=== PATIENT | male | born 1965 | race Caucasian/White ===

== ENCOUNTER 2018-01-22 09:58 | Day surgery (SDC) | payer OTHER ==
[2018-01-21 11:47] LABS: BILIRUBIN,URINE NEGATIVE (NEGATIVE); BLOOD, URINE NEGATIVE (NEGATIVE); CLARITY/URINE CLEAR (CLEAR); COLOR,URINE YELLOW (YELLOW); GLUCOSE,URINE NEGATIVE (NEGATIVE); KETONES,URINE NEGATIVE (NEGATIVE); LEUKOCYTE ESTERASE ,URINE NEGATIVE (NEGATIVE); NITRITE, URINE NEGATIVE (NEGATIVE); PH,URINE 5.5 (5.0-8.0); PROTEIN URINE NEGATIVE (NEGATIVE); UROBILINOGEN,URINE 0.2 (0.2-1.0)
[2018-01-21 11:49] LABS: BASOPHILS # (AUTO) 0.1 K/uL (0.0-0.2); BASOPHILS % (AUTO) 0.8 % (0.0-2.0); EOSINOPHILS # (AUTO) 0.2 K/uL (0.0-0.4); EOSINOPHILS % (AUTO) 2.7 % (0.0-4.0); HEMATOCRIT 42.9 % (36-54); HEMOGLOBIN 13.9 g/dL (14.0-18.0); LYMPHOCYTES # (AUTO) 1.6 K/uL (1.0-5.5); LYMPHOCYTES % (AUTO) 24.7 % (20.5-51.5); MEAN CORPUSCULAR HEMOGLOBIN 29 pg (27-31); MEAN CORPUSCULAR HGB CONC 33 % (32-36); MEAN CORPUSCULAR VOLUME 88 fL (79.0-98.0); MONOCYTES # (AUTO) 0.5 K/uL (0.0-1.0); MONOCYTES % (AUTO) 7.2 % (1.7-9.3); NEUTROPHILS # (AUTO) 4.1 K/uL (1.8-7.7); NEUTROPHILS % (AUTO) 64.6 % (40.0-70.0); PLATELET COUNT (AUTO) 228 K/uL (130-430); RED BLOOD CELL COUNT(AUTO) 4.87 MIL/uL (4.2-6.2); RED CELL DISTRIBUTION WIDTH 12.8 % (9.0-15.0); WHITE BLOOD COUNT (AUTO) 6.5 K/uL (4.8-10.8)
[2018-01-21 12:00] LABS: CALCIUM 9.6 mg/dL (8.4-11.0); CREATININE 0.95 mg/dL (0.55-1.30)
[2018-01-21 12:08] LABS: INR 1.1 (0.80-1.20)
[~2018-01-22] VITALS: Ht 170.2 cm; Wt 86.2 kg
[2018-01-22] MEDS ORDERED: NS IRRIG SOLN 1000 ML IR ONE (12:15)
[2018-01-22] MEDS ORDERED: MIDAZOLAM HCL 5 MG/5 ML VIAL IVP ONE (12:15)
[2018-01-22] MEDS ORDERED: NEOSTIGMINE METHYLSULFATE 1 MG/ML, 10 ML VIAL IVP ONE (12:15)
[2018-01-22] MEDS ORDERED: ONDANSETRON HCL 4 MG/2 ML VIAL IVP ONE (12:15)
[2018-01-22] MEDS ORDERED: METOPROLOL TARTRATE 5 MG/5 ML VIAL IVP ONE (12:15)
[2018-01-22] MEDS ORDERED: fentaNYL CITRATE 250 MCG/5 ML AMP IV ONE (12:15)
[2018-01-22] MEDS ORDERED: BUPIVACAINE /PF 0.5% 30 ML VIAL INJ ONE (12:15)
[2018-01-22] MEDS ORDERED: GLYCOPYRROLATE 0.2 MG/ML VIAL IJ ONE (12:15)
[2018-01-22] MEDS ORDERED: LR 1,000 ML IV.SOLN IV ONE (12:15)
[2018-01-22] MEDS ORDERED: ROCURONIUM BROMIDE 10 MG/ML (ZEMURON) IV ONE (12:15)
[2018-01-22] MEDS ORDERED: SEVOFLURANE 15 MIN GAS INH ONE (12:15)
[2018-01-22] MEDS ORDERED: POLYMYXIN 500,000/BACIT.10,000 UNITS in NS IRR 1 L IR ONE (12:50)
[2018-01-22] MEDS ORDERED: LR 1,000 ML IV SCH (14:16)
[2018-01-22] MEDS ORDERED: MORPHINE 4 MG/ML INJ. SYRINGE IVP PRN ×3 (14:30)
[2018-01-22] MEDS ORDERED: METOCLOPRAMIDE HCL 10 MG/2 ML VIAL IVP PRN (14:30)
[2018-01-22] MEDS ORDERED: MORPHINE 4 MG/ML INJ. SYRINGE ONE (15:30)
[2018-01-22] MEDS ORDERED: HYDROmorphone 1 MG INJ. 1 MG/ML AMPUL IVP ONE (16:15)
[2018-01-22] MEDS: HYDROmorphone 1 MG INJ. 1 MG/ML AMPUL ONE ×2 (16:17→17:12)
[2018-01-22] MEDS: DILTIAZEM HCL 25 MG/5 ML VIAL IVP ONE ×2 (16:30→17:12)
[2018-01-22] MEDS: ROPIVACAINE 0.2% 100 ML INJ SCH (16:34)
[2018-01-22] MEDS ORDERED: HYDROcodone/ACETAMIN 10-325 MG TAB PO PRN (16:45)
[2018-01-22 17:04] VITALS: BP_SYST 163
[2018-01-22] MEDS: MORPHINE SULFATE 10 MG/ML VIAL IM PRN ×2 (17:27→22:37)
[2018-01-22 19:00] VITALS: BP_SYST 140
[2018-01-22 20:00] VITALS: BP_SYST 140
[2018-01-22] MEDS ORDERED: ceFAZolin SODIUM 1 GM in D5W 50 ML IV SCH (20:00)
[2018-01-22] MEDS: HYDROcodone/ACETAMIN 10-325 MG TAB PO PRN (20:09)
[2018-01-22] MEDS ORDERED: ceFAZolin SODIUM 1 GM VIAL ONE (22:52)
[2018-01-22] MEDS: ceFAZolin SODIUM 1 GM in D5W 50 ML IV SCH (22:59)
[2018-01-23] MEDS ORDERED: CEFAZOLIN 1 GM IVPB PREMIX 50 ML IV ONE ×2 (02:10→11:45)
[2018-01-23] MEDS: MORPHINE SULFATE 10 MG/ML VIAL IM PRN ×2 (02:51→08:09)
[2018-01-23] MEDS: ROPIVACAINE 0.2% 100 ML INJ SCH (05:04)
[2018-01-23] MEDS: ceFAZolin SODIUM 1 GM in D5W 50 ML IV SCH (05:49)
[2018-01-23] MEDS: HYDROcodone/ACETAMIN 10-325 MG TAB PO PRN (06:56)
[2018-01-23 07:30] VITALS: BP_SYST 120
[2018-01-23] MEDS ORDERED: CEPH-568 PO (11:53)
[2018-01-23] MEDS ORDERED: HYDR-2489 PO (11:53)
[2018-01-23] MEDS ORDERED: HYDR25TA4 PO (11:54)
[2018-01-23] MEDS ORDERED: LISI10TA5 PO (11:54)
[2018-01-23 12:08] VITALS: BP_SYST 134
[2018-01-23 12:22] VITALS: BP_SYST 134
[2018-01-23 16:00] VITALS: BP_SYST 145
== END 2018-01-23 13:27 | disposition home or self-care (01) ==
LOC: SMU 09:58 → SDS 09:58 → SMU 16:55 → SDS 01-23 13:27
PROVIDERS: ATTEND Orthopaedic Surgery
DX: Z47.2 Encounter for removal of internal fixation device (principal); S82.392A Other fracture of lower end of left tibia, initial encounter for closed fracture; X58.XXXA Exposure to other specified factors, initial encounter; Y93.9 Activity, unspecified; Y92.89 Other specified places as the place of occurrence of the external cause; Y99.9 Unspecified external cause status; Z98.890 Other specified postprocedural states; I10 Essential (primary) hypertension
CPT/HCPCS: 20680; 27827; 36415; 71046; 76001; 80048; 81003; 85025; 85610; 85730; 87081; 93005; 97162; J0690 ×2; J1170; J2250; J2270 ×3; J2405; J2710; J3010; J3490 ×3; J7060; J7120; C1713; J2795

== ENCOUNTER 2018-02-16 09:44 | Inpatient (IN) | payer OTHER ==
[~2018-02-16] VITALS: Ht 170.2 cm; Wt 83.9 kg
[~2018-02-16 09:44] MED LIST: CEPH-568 PO; HYDR-2489 PO; HYDR25TA4 PO; LISI10TA5 PO
[2018-02-16 09:49] VITALS: BP_SYST 159
[2018-02-16] MEDS ORDERED: ceFAZolin SODIUM 1 GM in D5W 50 ML IV ONE (10:45)
[2018-02-16] MEDS ORDERED: fentaNYL CITRATE/PF 100 MCG/2 ML AMP IVP ONE (10:45)
[2018-02-16] MEDS ORDERED: LISI1TAB9 PO (11:08)
[2018-02-16] MEDS ORDERED: NACL 0.9% 1,000 ML IV SCH (11:15)
[2018-02-16 11:19] LABS: BASOPHILS # (AUTO) 0.1 K/uL (0.0-0.2); BASOPHILS % (AUTO) 0.8 % (0.0-2.0); EOSINOPHILS # (AUTO) 0.1 K/uL (0.0-0.4); EOSINOPHILS % (AUTO) 1.5 % (0.0-4.0); HEMATOCRIT 44.7 % (36-54); HEMOGLOBIN 14.8 g/dL (14.0-18.0); LYMPHOCYTES # (AUTO) 1.5 K/uL (1.0-5.5); LYMPHOCYTES % (AUTO) 16.2 % (20.5-51.5); MEAN CORPUSCULAR HEMOGLOBIN 29 pg (27-31); MEAN CORPUSCULAR HGB CONC 33 % (32-36); MEAN CORPUSCULAR VOLUME 87 fL (79.0-98.0); MONOCYTES # (AUTO) 0.8 K/uL (0.0-1.0); NEUTROPHILS # (AUTO) 6.8 K/uL (1.8-7.7); NEUTROPHILS % (AUTO) 72.5 % (40.0-70.0); PLATELET COUNT (AUTO) 337 K/uL (130-430); RED BLOOD CELL COUNT(AUTO) 5.17 MIL/uL (4.2-6.2); RED CELL DISTRIBUTION WIDTH 12.8 % (9.0-15.0); WHITE BLOOD COUNT (AUTO) 9.3 K/uL (4.8-10.8)
[2018-02-16 11:31] LABS: INR 1.2 (0.80-1.20)
[2018-02-16] MEDS ORDERED: ceFAZolin SODIUM 1 GM VIAL ONE (11:31)
[2018-02-16 11:32] LABS: ALBUMIN 3.8 g/dL (3.4-4.8); CALCIUM 9.7 mg/dL (8.4-11.0); CREATININE 1.08 mg/dL (0.55-1.30); POTASSIUM 3.6 mmol/L (3.5-5.1); TOTAL BILIRUBIN 0.3 mg/dL (0.0-1.0)
[2018-02-16] MEDS ORDERED: ceFAZolin SODIUM 1 GM in D5W 50 ML IV SCH (12:00)
[2018-02-16 12:02] VITALS: BP_SYST 151
[2018-02-16] MEDS: HYDROcodone/ACETAMIN 10-325 MG TAB PO PRN ×3 (12:21→20:33)
[2018-02-16 12:23] VITALS: BP_SYST 148
[2018-02-16 16:00] VITALS: BP_SYST 138
[2018-02-16] MEDS: cefTRIAXone 2 GM in D5W 50 ML IV SCH (18:08)
[2018-02-16] MEDS: VANCOMYCIN HCL 1.25 GM/NS 250 ML IV SCH (18:57)
[2018-02-16 20:00] VITALS: BP_SYST 139
[2018-02-16 23:47] VITALS: BP_SYST 124
[2018-02-17] MEDS: HYDROcodone/ACETAMIN 10-325 MG TAB PO PRN ×5 (04:05→20:44)
[2018-02-17] MEDS: VANCOMYCIN HCL 1.25 GM/NS 250 ML IV SCH ×2 (06:03→20:03)
[2018-02-17 07:12] LABS: ALBUMIN 3.5 g/dL (3.4-4.8); CALCIUM 9.4 mg/dL (8.4-11.0); CREATININE 0.92 mg/dL (0.55-1.30); POTASSIUM 3.9 mmol/L (3.5-5.1); TOTAL BILIRUBIN 0.3 mg/dL (0.0-1.0)
[2018-02-17 08:21] VITALS: BP_SYST 135
[2018-02-17] MEDS: LISINOPRIL 10 MG TABLET (PRINIVIL) PO SCH (09:12)
[2018-02-17] MEDS: HYDROCHLOROTHIAZIDE 12.5 MG CAPSULE (HCTZ) PO SCH (09:13)
[2018-02-17 12:07] VITALS: BP_SYST 151
[2018-02-17 16:00] VITALS: BP_SYST 131
[2018-02-17] MEDS: cefTRIAXone 2 GM in D5W 50 ML IV SCH (17:27)
[2018-02-17 19:05] VITALS: BP_SYST 132
[2018-02-18] MEDS: HYDROcodone/ACETAMIN 10-325 MG TAB PO PRN ×4 (05:35→22:38)
[2018-02-18] MEDS: VANCOMYCIN HCL 1.25 GM/NS 250 ML IV SCH ×2 (06:30→18:38)
[2018-02-18 08:00] VITALS: BP_SYST 124
[2018-02-18] MEDS: LISINOPRIL 10 MG TABLET (PRINIVIL) PO SCH (09:01)
[2018-02-18] MEDS: HYDROCHLOROTHIAZIDE 12.5 MG CAPSULE (HCTZ) PO SCH (09:02)
[2018-02-18] MEDS: cefTRIAXone 2 GM in D5W 50 ML IV SCH (17:19)
[2018-02-18 20:00] VITALS: BP_SYST 143
[2018-02-18 23:30] VITALS: BP_SYST 127
[2018-02-19] MEDS: HYDROcodone/ACETAMIN 10-325 MG TAB PO PRN ×5 (04:08→23:11)
[2018-02-19] MEDS: VANCOMYCIN HCL 1.25 GM/NS 250 ML IV SCH ×2 (06:29→20:25)
[2018-02-19 08:00] VITALS: BP_SYST 143
[2018-02-19] MEDS: HYDROCHLOROTHIAZIDE 12.5 MG CAPSULE (HCTZ) PO SCH (08:33)
[2018-02-19] MEDS: LISINOPRIL 10 MG TABLET (PRINIVIL) PO SCH (08:34)
[2018-02-19 12:00] VITALS: BP_SYST 123
[2018-02-19 15:06] LABS: INR 1.1 (0.80-1.20); PROTHROMBIN TIME 11.4 SECS (9.5-12.5)
[2018-02-19 16:35] VITALS: BP_SYST 142
[2018-02-19 20:00] VITALS: BP_SYST 119
[2018-02-19 23:00] VITALS: BP_SYST 127
[2018-02-20] MEDS: VANCOMYCIN HCL 1.25 GM/NS 250 ML IV SCH (06:00)
[2018-02-20] MEDS: HYDROcodone/ACETAMIN 10-325 MG TAB PO PRN ×5 (06:03→22:46)
[2018-02-20 06:35] LABS: CREATININE 0.84 mg/dL (0.55-1.30); POTASSIUM 3.8 mmol/L (3.5-5.1)
[2018-02-20 08:00] VITALS: BP_SYST 132
[2018-02-20 08:19] LABS: CALCIUM 9.2 mg/dL (8.4-10.2)
[2018-02-20] MEDS: HYDROCHLOROTHIAZIDE 12.5 MG CAPSULE (HCTZ) PO SCH (09:46)
[2018-02-20] MEDS: LISINOPRIL 10 MG TABLET (PRINIVIL) PO SCH (09:47)
[2018-02-20 11:17] VITALS: BP_SYST 141
[2018-02-20 15:26] VITALS: BP_SYST 119
[2018-02-20] MEDS: VANCOMYCIN HCL 1,500 MG in NS 250 ML IV SCH (18:03)
[2018-02-20 20:00] VITALS: BP_SYST 129
[2018-02-20 23:15] VITALS: BP_SYST 120
[2018-02-21] MEDS: VANCOMYCIN HCL 1,500 MG in NS 250 ML IV SCH ×2 (06:02→18:10)
[2018-02-21] MEDS: HYDROcodone/ACETAMIN 10-325 MG TAB PO PRN ×4 (06:04→20:28)
[2018-02-21 08:20] VITALS: BP_SYST 124
[2018-02-21] MEDS: HYDROCHLOROTHIAZIDE 12.5 MG CAPSULE (HCTZ) PO SCH (08:24)
[2018-02-21] MEDS: LISINOPRIL 10 MG TABLET (PRINIVIL) PO SCH (08:24)
[2018-02-21 12:00] VITALS: BP_SYST 125
[2018-02-21 16:06] VITALS: BP_SYST 124
[2018-02-21 20:00] VITALS: BP_SYST 141
[2018-02-22 00:29] VITALS: BP_SYST 126
[2018-02-22] MEDS: VANCOMYCIN HCL 1,500 MG in NS 250 ML IV SCH ×2 (06:09→20:39)
[2018-02-22] MEDS: HYDROcodone/ACETAMIN 10-325 MG TAB PO PRN ×4 (06:14→23:59)
[2018-02-22 08:00] VITALS: BP_SYST 140
[2018-02-22] MEDS: LISINOPRIL 10 MG TABLET (PRINIVIL) PO SCH (08:50)
[2018-02-22] MEDS: HYDROCHLOROTHIAZIDE 12.5 MG CAPSULE (HCTZ) PO SCH (08:50)
[2018-02-22 12:30] VITALS: BP_SYST 151
[2018-02-22 16:43] VITALS: BP_SYST 140
[2018-02-22 19:10] VITALS: BP_SYST 131
[2018-02-22] MEDS: MUPIROCIN 2% TOPICAL OINTMENT 22 GM NS SCH (20:40)
[2018-02-23 00:25] VITALS: BP_SYST 116
[2018-02-23] MEDS: VANCOMYCIN HCL 1,500 MG in NS 250 ML IV SCH (07:04)
[2018-02-23] MEDS: HYDROcodone/ACETAMIN 10-325 MG TAB PO PRN (07:05)
[2018-02-23 08:00] VITALS: BP_SYST 137
[2018-02-23] MEDS: HYDROCHLOROTHIAZIDE 12.5 MG CAPSULE (HCTZ) PO SCH (09:19)
[2018-02-23] MEDS: MUPIROCIN 2% TOPICAL OINTMENT 22 GM NS SCH (09:19)
[2018-02-23] MEDS: LISINOPRIL 10 MG TABLET (PRINIVIL) PO SCH (09:19)
[2018-02-23 12:05] VITALS: BP_SYST 124
[2018-02-23] MEDS ORDERED: VANC250C11 IV (12:47)
[2018-02-23 13:06] VITALS: BP_SYST 124
== END 2018-02-23 13:30 | disposition home health service (06) | DRG 560 ==
LOC: SED 09:44 → SMU 11:14
PROVIDERS: ADMIT Orthopaedic Surgery; ATTEND Orthopaedic Surgery
PROC: 02HV33Z Insertion of Infusion Device into Superior Vena Cava, Percutaneous Approach (ICD-10-PCS; principal; 2018-02-20)
PROC: B548ZZA Ultrasonography of Superior Vena Cava, Guidance (ICD-10-PCS; 2018-02-20)
DX: T84.623A Infection and inflammatory reaction due to internal fixation device of left tibia, initial encounter (principal); L03.115 Cellulitis of right lower limb; M86.8X6 Other osteomyelitis, lower leg; T81.31XA Disruption of external operation (surgical) wound, not elsewhere classified, initial encounter; B95.62 Methicillin resistant Staphylococcus aureus infection as the cause of diseases classified elsewhere; I10 Essential (primary) hypertension; Y83.1 Surgical operation with implant of artificial internal device as the cause of abnormal reaction of the patient, or of later complication, without mention of misadventure at the time of the procedure; Z79.899 Other long term (current) drug therapy; Y92.89 Other specified places as the place of occurrence of the external cause
CPT/HCPCS: 36415; 71045; 73590-TC; 80053; 80069; 80202-TC; 83605; 85025; 85610-TC; 85651-TC; 85730-TC; 87040-TC; 87070-TC; 87081; 87186-TC; 93005; 96365; 96375; 99285; A6209; C1751; C1769; J0690; J0696; J3010; J3370; J7030; J7050; J7060

== ENCOUNTER 2018-03-15 19:41 | Inpatient (IN) | payer OTHER ==
[~2018-03-15] VITALS: Ht 170.2 cm; Wt 86.7 kg
[~2018-03-15 19:41] MED LIST changes: -CEPH-568 PO; -HYDR-2489 PO; -HYDR25TA4 PO; -LISI10TA5 PO; +LISI1TAB9 PO
[2018-03-15 19:45] VITALS: BP_SYST 149
[2018-03-15] MEDS ORDERED: HYDROcodone/ACETAMIN 10-325 MG TAB PO ONE (21:00)
[2018-03-15] MEDS ORDERED: IBUPROFEN 600 MG TABLET PO ONE (21:00)
[2018-03-15] MEDS ORDERED: HYDROcodone/ACETAMIN 5-325 MG TAB (NORCO/ VICODIN) PO PRN (22:00)
[2018-03-15] MEDS ORDERED: VANC125C10 IVPB (22:49)
[2018-03-15 23:11] VITALS: BP_SYST 136
[2018-03-16] MEDS: MORPHINE 4 MG/ML INJ. SYRINGE IVP PRN ×5 (05:10→22:44)
[2018-03-16 06:05] LABS: BASOPHILS # (AUTO) 0.1 K/uL (0.0-0.2); BASOPHILS % (AUTO) 1.2 % (0.0-2.0); EOSINOPHILS # (AUTO) 0.2 K/uL (0.0-0.4); EOSINOPHILS % (AUTO) 5.1 % (0.0-4.0); HEMATOCRIT 37.4 % (36-54); HEMOGLOBIN 12.4 g/dL (14.0-18.0); LYMPHOCYTES # (AUTO) 1.5 K/uL (1.0-5.5); LYMPHOCYTES % (AUTO) 31.1 % (20.5-51.5); MEAN CORPUSCULAR HEMOGLOBIN 29 pg (27-31); MEAN CORPUSCULAR HGB CONC 33 % (32-36); MEAN CORPUSCULAR VOLUME 86 fL (79.0-98.0); MONOCYTES # (AUTO) 0.7 K/uL (0.0-1.0); NEUTROPHILS # (AUTO) 2.3 K/uL (1.8-7.7); NEUTROPHILS % (AUTO) 48.6 % (40.0-70.0); PLATELET COUNT (AUTO) 219 K/uL (130-430); RED BLOOD CELL COUNT(AUTO) 4.33 MIL/uL (4.2-6.2); RED CELL DISTRIBUTION WIDTH 13.5 % (9.0-15.0); WHITE BLOOD COUNT (AUTO) 4.8 K/uL (4.8-10.8)
[2018-03-16 07:32] LABS: ERYTHROCYTE SEDIMENTATION RATE 18 MM/HR (0-15)
[2018-03-16 08:00] VITALS: BP_SYST 128
[2018-03-16] MEDS ORDERED: COMMUNICATION ORDER XX ONE (11:45)
[2018-03-16 12:47] VITALS: BP_SYST 123
[2018-03-16 13:49] LABS: CALCIUM 8.5 mg/dL (8.4-11.0); CREATININE 0.94 mg/dL (0.55-1.30); POTASSIUM 3.7 mmol/L (3.5-5.1)
[2018-03-16] MEDS ORDERED: VANCOMYCIN HCL 1,500 MG in NS 250 ML IV SCH (14:00)
[2018-03-16] MEDS: VANCOMYCIN HCL 1,500 MG in NS 250 ML IV SCH (16:29)
[2018-03-16 16:56] VITALS: BP_SYST 126
[2018-03-16 19:48] VITALS: BP_SYST 133
[2018-03-17 01:09] VITALS: BP_SYST 134
[2018-03-17] MEDS: MORPHINE 4 MG/ML INJ. SYRINGE IVP PRN ×4 (01:56→11:15)
[2018-03-17] MEDS: VANCOMYCIN HCL 1,500 MG in NS 250 ML IV SCH (03:13)
[2018-03-17 05:00] VITALS: BP_SYST 137
[2018-03-17 08:05] VITALS: BP_SYST 132
[2018-03-17 12:42] VITALS: BP_SYST 123
[2018-03-17 12:49] VITALS: BP_SYST 123
[2018-03-17] MEDS ORDERED: HYDR-2489 PO (12:56)
== END 2018-03-17 13:12 | disposition home health service (06) | DRG 561 ==
LOC: SED 19:41 → SMU 21:57
PROVIDERS: ADMIT Orthopaedic Surgery; ATTEND Orthopaedic Surgery
DX: T84.623A Infection and inflammatory reaction due to internal fixation device of left tibia, initial encounter (principal); I10 Essential (primary) hypertension; Y79.8 Miscellaneous orthopedic devices associated with adverse incidents, not elsewhere classified; Z87.81 Personal history of (healed) traumatic fracture; Y92.89 Other specified places as the place of occurrence of the external cause
CPT/HCPCS: 36415; 73590-TC; 80048; 80202-TC; 83605; 85025; 85651-TC; 86140; 87040-TC; 87070-TC; 87075-TC; 87081; 99285; J2270; J3370; J7050

== ENCOUNTER 2018-07-09 09:32 | Day surgery (SDC) | payer OTHER ==
[2018-07-06 11:16] LABS: BILIRUBIN,URINE NEGATIVE (NEGATIVE); BLOOD, URINE NEGATIVE (NEGATIVE); CLARITY/URINE SL HAZY (CLEAR); COLOR,URINE YELLOW (YELLOW); CREATININE 0.85 mg/dL (0.55-1.30); GLUCOSE,URINE NEGATIVE (NEGATIVE); KETONES,URINE NEGATIVE (NEGATIVE); LEUKOCYTE ESTERASE ,URINE NEGATIVE (NEGATIVE); NITRITE, URINE NEGATIVE (NEGATIVE); PH,URINE 5.5 (5.0-8.0); POTASSIUM 3.4 mmol/L (3.5-5.1); PROTEIN URINE TRACE (NEGATIVE); UROBILINOGEN,URINE 0.2 (0.2-1.0)
[2018-07-06 11:32] LABS: PROTHROMBIN TIME 10.6 SECS (9.5-12.5)
[2018-07-06 12:45] LABS: HEMATOCRIT 45.9 % (36-54); HEMOGLOBIN 15.4 g/dL (14.0-18.0); MEAN CORPUSCULAR HEMOGLOBIN 29 pg (27-31); MEAN CORPUSCULAR HGB CONC 33 % (32-36); MEAN CORPUSCULAR VOLUME 87 fL (79.0-98.0); RED BLOOD CELL COUNT(AUTO) 5.27 MIL/uL (4.2-6.2)
[2018-07-06 12:46] LABS: BASOPHILS # (AUTO) 0.1 K/uL (0.0-0.2); BASOPHILS % (AUTO) 1.3 % (0.0-2.0); EOSINOPHILS # (AUTO) 0.2 K/uL (0.0-0.4); EOSINOPHILS % (AUTO) 3.4 % (0.0-4.0); LYMPHOCYTES # (AUTO) 1.4 K/uL (1.0-5.5); LYMPHOCYTES % (AUTO) 27.6 % (20.5-51.5); MONOCYTES # (AUTO) 0.5 K/uL (0.0-1.0); MONOCYTES % (AUTO) 9.8 % (1.7-9.3); NEUTROPHILS # (AUTO) 2.9 K/uL (1.8-7.7); NEUTROPHILS % (AUTO) 57.9 % (40.0-70.0); PLATELET COUNT (AUTO) 164 K/uL (130-430); RED CELL DISTRIBUTION WIDTH 15.6 % (9.0-15.0)
[~2018-07-09] VITALS: Ht 170.2 cm; Wt 91.2 kg
[~2018-07-09 09:32] MED LIST changes: +HYDR-4274 PO; +VANC125C10 IVPB
[2018-07-09] MEDS ORDERED: BUPIVACAINE /EPINEPHRINE/PF 0.25% 30 ML VIAL INJ ONE (11:45)
[2018-07-09] MEDS ORDERED: CEFAZOLIN 2 GM IVPB PREMIX 50 ML IV ONE (11:45)
[2018-07-09] MEDS ORDERED: PROPOFOL 200MG/ 20ML VIAL (DIPRIVAN) IV ONE (11:45)
[2018-07-09] MEDS ORDERED: ONDANSETRON HCL 4 MG/2 ML VIAL IVP ONE (11:45)
[2018-07-09] MEDS ORDERED: SEVOFLURANE 15 MIN GAS INH ONE (11:45)
[2018-07-09] MEDS ORDERED: MIDAZOLAM HCL 5 MG/5 ML VIAL IVP ONE (11:45)
[2018-07-09] MEDS ORDERED: KETOROLAC TROMETHAMINE 30 MG VIAL IVP ONE (11:45)
[2018-07-09] MEDS ORDERED: LR 1,000 ML IV.SOLN IV ONE (11:45)
[2018-07-09] MEDS ORDERED: fentaNYL CITRATE/PF 100 MCG/2 ML AMP IVP ONE (11:45)
[2018-07-09] MEDS ORDERED: POLYMYXIN 500,000/BACIT.10,000 UNITS in NS IRR 1 L IR ONE (11:53)
[2018-07-09] MEDS ORDERED: KETOROLAC TROMETHAMINE 30 MG VIAL IVP PRN (12:15)
[2018-07-09] MEDS ORDERED: fentaNYL CITRATE/PF 100 MCG/2 ML AMP IVP PRN ×2 (12:15)
[2018-07-09] MEDS ORDERED: ONDANSETRON HCL 4 MG/2 ML VIAL IVP PRN (12:15)
[2018-07-09] MEDS ORDERED: KETOROLAC TROMETHAMINE 30 MG VIAL ONE (13:07)
[2018-07-09] MEDS ORDERED: fentaNYL CITRATE/PF 100 MCG/2 ML AMP ONE (13:18)
[2018-07-09 14:59] VITALS: BP_SYST 120
== END 2018-07-09 14:45 | disposition home or self-care (01) ==
LOC: SMU 09:32 → SDS 09:32
PROVIDERS: ATTEND Orthopaedic Surgery
DX: Z47.2 Encounter for removal of internal fixation device (principal); Z79.899 Other long term (current) drug therapy; Z98.890 Other specified postprocedural states; Z87.81 Personal history of (healed) traumatic fracture; Z87.891 Personal history of nicotine dependence; I10 Essential (primary) hypertension; Z79.01 Long term (current) use of anticoagulants
CPT/HCPCS: 20680; 36415; 71046; 80048; 81003; 85025; 85610; 85730; 93005; J0690; J1885; J2250; J2405; J2704; J3010; J3490; J7120